=== PATIENT | female | born 1990 | race Two or more races ===

== ENCOUNTER 2025-04-17 17:34 | Inpatient (IN) | payer BC ==
[~2025-04-17] VITALS: Ht 160 cm; Wt 84.1 kg
[2025-04-17 18:12] LABS: BASOPHILS % (AUTO) 0.2 % (0.0-2.0); EOSINOPHILS % (AUTO) 0.2 % (1.0-6.0); HEMATOCRIT 44.7 % (36-46); LYMPHOCYTES # (AUTO) 0.8 K/uL (1.0-4.8); MEAN CORPUSCULAR HEMOGLOBIN 29.2 pg (26.0-34.0); MEAN CORPUSCULAR HGB CONC 33.6 G/dL (31.0-37.0); MEAN CORPUSCULAR VOLUME 87 fL (80-100); MONOCYTES # (AUTO) 0.8 K/uL (0.1-1.0); MONOCYTES % (AUTO) 6.2 % (2.0-9.0); NEUTROPHILS # (AUTO) 11.4 K/uL (1.8-7.7); PLATELET COUNT (AUTO) 265 K/uL (150-450); RED BLOOD CELL COUNT(AUTO) 5.14 MIL/uL (4.00-5.20); RED CELL DISTRIBUTION WIDTH 13.4 % (11.5-14.5); WHITE BLOOD COUNT (AUTO) 13.1 K/uL (4.5-11.0)
[2025-04-17 18:14] LABS: NEUTROPHILS % (AUTO) 87.4 % (40.0-70.0)
[2025-04-17 18:18] LABS: ANION GAP 10 mmol/L (8-16); CALCIUM, TOTAL 9.3 mg/dL (8.8-10.5); CARBON DIOXIDE 28 mmol/L (22-29); CHLORIDE 100 mmol/L (98-107); CREATININE 0.82 mg/dL (0.60-1.30); GLOMERULAR FILTR. RATE CALC > 60 mL/min (>60); GLUCOSE,RANDOM 132 mg/dL (70-110); POTASSIUM 4.5 mmol/L (3.5-5.1); SODIUM SERUM 138 mmol/L (136-145); UREA NITROGEN, BLOOD 8 mg/dL (7-18)
[2025-04-17 18:29] LABS: HCG,QUANTITATIVE < 1 mIU/mL (0-6); LIPASE 23 U/L (16-77)
[2025-04-17 18:36] LABS: APPEARANCE,URINE TURBID (CLEAR); BILIRUBIN,URINE NEGATIVE (NEGATIVE); COLOR,URINE YELLOW (YELLOW); GLUCOSE, URINE (UA) NEGATIVE (NEGATIVE); KETONES,URINE 80-100 mg/dL (NEGATIVE); LEUKOCYTE ESTERASE ,URINE LARGE (NEGATIVE); NITRATE,URINE NEGATIVE (NEGATIVE); OCCULT BLOOD,URINE SMALL (NEGATIVE); PROTEIN,URINE 100-200,SEE CONFIRM mg/dL (NEGATIVE); SPECIFIC GRAVITIY, URINE 1.036 (1.003-1.030)
[2025-04-17] MEDS ORDERED: SODIUM CHLORIDE 0.9% 100 ML ONE (18:52)
[2025-04-17] MEDS ORDERED: IOHEXOL 350 MG/ML 100 ML VIAL ONE (18:52)
[2025-04-17] MEDS ORDERED: 0.9% SODIUM CHLORIDE 10 ML SYRINGE IVP PRN (19:00)
[2025-04-17 19:05] LABS: BACTERIA,URINE Moderate /HPF (None Seen); RBC,URINE 0-2 /HPF (0-2); SQUAMOUS EPITHELIAL CELL,UR Few /LPF (None Seen)
[2025-04-17] MEDS: PIPERACILLIN/TAZO 3.375 GM/D5W 50 ML IV ONE (19:19)
[2025-04-17] MEDS: SODIUM CHLORIDE 0.9% 2,500 ML IV ONE (19:19)
[2025-04-17] MEDS: ONDANSETRON HCL 4 MG/2 ML VIAL IVP ONE (19:20)
[2025-04-17] MEDS: MORPHINE SULFATE 4 MG/ML SYRINGE IVP ONE (19:20)
[2025-04-17 19:25] LABS: SULFOSALICYLIC ACID,URINE 1+ (Negative)
[2025-04-17 19:28] LABS: PROTHROMBIN TIME 11.8 SEC (9.4-11.6)
[2025-04-17 20:11] LABS: ALANINE AMINOTRANSFERASE 12 U/L (12-78); ALBUMIN 3.3 g/dL (3.4-5.0); ALKALINE PHOSPHATASE 73 U/L (46-116); ASPARTATE AMINOTRANSFERASE 9 U/L (15-37); BILIRUBIN,TOTAL 0.8 mg/dL (0.1-1.0); TOTAL PROTEIN, SERUM 7.8 g/dL (6.4-8.2)
[2025-04-17 20:15] LABS: LACTIC ACID 2.5 mmol/L (0.4-2.0)
[2025-04-17] MEDS ORDERED: ONDANSETRON HCL 4 MG/2 ML VIAL IVP PRN (21:45)
[2025-04-17] MEDS: SODIUM CHLORIDE 0.9% 1,000 ML IV ONE (22:22)
[2025-04-17] MEDS: ACETAMINOPHEN 1000 MG/ISO-OSM 100 ML IV ONE (22:22)
[2025-04-17 23:38] VITALS: BP 121/58; PULSE 101; RESP 18; TEMP 98.4; O2SAT 99
[2025-04-18] MEDS: PIPERACILLIN/TAZO 3.375 GM/D5W 50 ML IV SCH (02:13)
[2025-04-18 03:42] VITALS: BP 120/54; PULSE 99; RESP 20; TEMP 99.4; O2SAT 100
[2025-04-18] MEDS: MORPHINE SULFATE 2 MG/ML SYRINGE IVP PRN (03:42)
[2025-04-18] MEDS ORDERED: ACETAMINOPHEN/ISO-OSM 1000 MG/100 ML BOTTLE IV ONE (06:06)
[2025-04-18] MEDS ORDERED: PROPOFOL 1% 20 ML VIAL IVP ONE (06:06)
[2025-04-18] MEDS ORDERED: LIDOCAINE/PF 2% 5 ML VIAL ONE (06:06)
[2025-04-18] MEDS ORDERED: MIDAZOLAM HCL 2 MG/2 ML VIAL ONE (06:06)
[2025-04-18] MEDS ORDERED: FentaNYL CITRATE PF 100 MCG/2 ML VIAL ONE (06:06)
[2025-04-18] MEDS ORDERED: DEXAMETHASONE SOD PHOS 4 MG/ML VIAL ONE (06:06)
[2025-04-18] MEDS ORDERED: ROCURONIUM BROMIDE 10 MG/ML 5 ML VIAL ONE (06:06)
[2025-04-18] MEDS ORDERED: ONDANSETRON HCL 4 MG/2 ML VIAL ONE (06:06)
[2025-04-18] MEDS ORDERED: SUGAMMADEX SODIUM 200 MG/2 ML VIAL IVP ONE (06:06)
[2025-04-18] MEDS ORDERED: KETOROLAC TROMETHAMINE 60 MG/2 ML VIAL IM ONE (06:06)
[2025-04-18] MEDS: PANTOPRAZOLE SODIUM 40 MG/VIAL IVP SCH (08:31)
[2025-04-18] MEDS: DOCUSATE SODIUM 100 MG CAPSULE PO SCH (08:31)
[2025-04-18 08:47] VITALS: BP 108/54; PULSE 99; RESP 18; TEMP 100.2; O2SAT 97
[2025-04-18] MEDS ORDERED: RINGERS SOLUTION,LACTATED 1,000 ML IV ONE (09:34)
[2025-04-18] MEDS: ETHYL ALCOHOL 62% ANTISEPTIC NASAL SANITIZER 0.6 ML AMPUL NASAL ONE (09:53)
[2025-04-18] MEDS: CHLORHEXIDINE GLUCONATE 2% TOWELETTE [2'S/6'S] TP ONE (10:10)
[2025-04-18] MEDS ORDERED: SODIUM CHLORIDE 0.9% 1,000 ML ONE (10:11)
[2025-04-18] MEDS ORDERED: HYDROmorphone HCL 2 MG/ML SYRINGE IVP PRN (11:00)
[2025-04-18] MEDS ORDERED: FentaNYL CITRATE PF 100 MCG/2 ML VIAL IVP PRN (11:00)
[2025-04-18] MEDS ORDERED: MEPERIDINE-PF 25 MG/ML VIAL IVP PRN (11:00)
[2025-04-18] MEDS: BUPIVACAINE 0.25%/EPI 1:200,000/PF 10 ML VIAL ONE (15:19)
[2025-04-18 16:03] VITALS: BP 102/59; PULSE 82; RESP 18; TEMP 98.6; O2SAT 98
[2025-04-18 19:37] VITALS: BP 99/66; PULSE 92; RESP 20; TEMP 98.4; O2SAT 97
[2025-04-18] MEDS: ACETAMINOPHEN 325 MG TABLET PO PRN (21:15)
[2025-04-19 04:26] VITALS: BP 106/60; PULSE 77; RESP 18; TEMP 97.5; O2SAT 99
[2025-04-19] MEDS: OXYGEN THERAPY IH SCH (08:00)
[2025-04-19 08:39] VITALS: BP 99/65; PULSE 85; RESP 18; TEMP 97.7; O2SAT 100
[2025-04-19 16:06] VITALS: BP 114/65; PULSE 94; RESP 18; TEMP 98.1; O2SAT 97
[2025-04-19 19:33] VITALS: BP 119/70; PULSE 98; RESP 20; TEMP 98.6; O2SAT 97
[2025-04-20] MEDS ORDERED: SODIUM CHLORIDE 0.9% 500 ML IV ONE (02:02)
[2025-04-20 05:32] VITALS: BP 103/64; PULSE 85; RESP 18; TEMP 99.3; O2SAT 100
[2025-04-20 08:40] VITALS: BP 115/70; PULSE 96; RESP 18; TEMP 98.8; O2SAT 100
[2025-04-20] MEDS ORDERED: AMOX1TAB15 PO (11:36)
[2025-04-20 16:33] VITALS: BP 116/72; PULSE 82; RESP 18; TEMP 99; O2SAT 97
== END 2025-04-20 19:45 | disposition home or self-care (01) | DRG 853 ==
LOC: EMS 17:34 → EDH 21:43 → 6S 23:38
PROVIDERS: ADMIT Internal Medicine; ATTEND Internal Medicine
PROC: 0W9G4ZZ Drainage of Peritoneal Cavity, Percutaneous Endoscopic Approach (ICD-10-PCS; 2025-04-18)
PROC: 0DTJ4ZZ Resection of Appendix, Percutaneous Endoscopic Approach (ICD-10-PCS; principal; 2025-04-18 10:30)
DX: A41.9 Sepsis, unspecified organism (principal); K35.33 Acute appendicitis with perforation, localized peritonitis, and gangrene, with abscess; E66.9 Obesity, unspecified; Z68.32 Body mass index [BMI] 32.0-32.9, adult
CPT/HCPCS: 71045; 74177; 80048; 80076; 81001; 81002; 83605; 83690; 84145; 84702; 85025; 85610; 87040; 87081; 87086; 93005; 96365; 96375; 99285; G0238; J0131; J1100; J1885; J2250; J2270; J2405; J2470; J2543; J2704; J3010; J3490; J7030; J7040; J7050; J7120; 36415-L1; 36415-TC